=== PATIENT | male | born 1940 | race Caucasian/White ===

== ENCOUNTER → 2016-07-30 | Outpatient (CLI) | payer OTHER ==
[~2016-07-30] VITALS: Ht 177.8 cm; Wt 99.8 kg
[~2016-07-30] MED LIST: ASPIRIN EC81 MG PO; DAILY MULTIPLE1 EAC1 PO; DULOXETINE HCL30 MG PO; FLOMAX 0.4 MG0.4 MG PO; IRON PO; LEVEMIR100 UNIT/1 SQ; LIPITOR TAB 2020 MG PO; LOPRESSOR 50 MG50 MG PO; LORTAB 5-325 M1 EACH PO; LYRICA100 MG PO; METFORMIN HCL500 MG PO; NORVASC 5 MG TAB5 MG PO; NOVOLOG 10100 UNITS1 SQ; PANTOPRAZOLE SO40 MG PO; PLAVIX 75 MG TA75 MG PO; VITAMIN B12; ZYLOPRIM 100 M100 MG PO
[2016-07-30 13:15] LABS: HEMOGLOBIN 7.9 gm/dl (14.0-17.5); RED BLOOD COUNT 2.78 M/UL (4.20-5.50); WHITE BLOOD COUNT 5.1 K/UL (4.5-11.0)
== END ==
LOC: OPSV 12:00
PROVIDERS: Internal Medicine Nephrology
DX: N18.4 Chronic kidney disease, stage 4 (severe) (principal); D63.1 Anemia in chronic kidney disease
CPT/HCPCS: 36415; 80048; 82728; 83540; 83550; 85027; 96365; 96366; J1756; J7050

== ENCOUNTER → 2016-08-05 | Outpatient (CLI) | payer OTHER ==
[~2016-08-05] VITALS: Ht 177.8 cm; Wt 99.8 kg
== END ==
LOC: OPSV 14:22
DX: N18.4 Chronic kidney disease, stage 4 (severe) (principal); D63.1 Anemia in chronic kidney disease
CPT/HCPCS: 96365; 96366; J1756; J7050

== ENCOUNTER → 2016-08-14 | Outpatient (CLI) | payer OTHER ==
[~2016-08-14] VITALS: Ht 177.8 cm; Wt 99.8 kg
[2016-08-14 14:23] LABS: HEMOGLOBIN 8.8 gm/dl (14.0-17.5); RED BLOOD COUNT 3.01 M/UL (4.20-5.50); WHITE BLOOD COUNT 8.7 K/UL (4.5-11.0)
== END ==
LOC: OPSV 08-11 11:00
PROVIDERS: Internal Medicine Nephrology
DX: N18.5 Chronic kidney disease, stage 5 (principal); D63.1 Anemia in chronic kidney disease
CPT/HCPCS: 36415; 80069; 81001; 82728; 83540; 83550; 85027; 96372; J0885

== ENCOUNTER → 2016-08-28 | Outpatient (CLI) | payer OTHER ==
[~2016-08-28] VITALS: Ht 177.8 cm; Wt 99.8 kg
[2016-08-28 14:01] LABS: HEMOGLOBIN 8.8 gm/dl (14.0-17.5); RED BLOOD COUNT 3.1 M/UL (4.20-5.50); WHITE BLOOD COUNT 6.8 K/UL (4.5-11.0)
== END ==
LOC: OPSV 13:00
PROVIDERS: Internal Medicine Nephrology
DX: N18.4 Chronic kidney disease, stage 4 (severe) (principal); D63.1 Anemia in chronic kidney disease
CPT/HCPCS: 36415; 80069; 85027; 96372; J0885; Q4081

== ENCOUNTER → 2016-09-11 | Outpatient (CLI) | payer OTHER ==
[~2016-09-11] VITALS: Ht 177.8 cm; Wt 99.8 kg
[2016-09-11 14:24] LABS: HEMOGLOBIN 8.4 gm/dl (14.0-17.5); RED BLOOD COUNT 3.02 M/UL (4.20-5.50); WHITE BLOOD COUNT 7.2 K/UL (4.5-11.0)
== END ==
LOC: OPSV 14:00
PROVIDERS: Internal Medicine Nephrology
DX: N18.4 Chronic kidney disease, stage 4 (severe) (principal); D63.1 Anemia in chronic kidney disease
CPT/HCPCS: 36415; 80048; 82728; 83540; 83550; 85027; 96365; J1756; J7050

== ENCOUNTER → 2016-10-14 | Outpatient (CLI) | payer OTHER ==
[~2016-10-14] VITALS: Ht 177.8 cm; Wt 99.8 kg
[2016-10-14 14:26] LABS: HEMOGLOBIN 8.2 gm/dl (14.0-17.5); RED BLOOD COUNT 2.89 M/UL (4.20-5.50); WHITE BLOOD COUNT 10.3 K/UL (4.5-11.0)
== END ==
LOC: OPSV 10-12 10:30
PROVIDERS: Internal Medicine Nephrology
DX: I12.0 Hypertensive chronic kidney disease with stage 5 chronic kidney disease or end stage renal disease (principal); N18.5 Chronic kidney disease, stage 5; N25.81 Secondary hyperparathyroidism of renal origin; E87.2 Acidosis
CPT/HCPCS: 36415; 80048; 82728; 83540; 83550; 85027; 96365; 96366; J1756; J7050